=== PATIENT | female | born 1950 | race Caucasian/White ===

== ENCOUNTER → 2016-11-10 | Outpatient (CLI) | payer OTHER ==
[~2016-11-10] MED LIST: GLIPIZIDE5 M1 PO; GLUCOPHAGE1000 MG PO; LOVASTATIN10 MG PO; MEDROL DOSEPAK4 MG PO; METFORMIN500 MG PO; TRAZADONE HYDR100 MG PO; ZIAC 10 MG-6.251 TAB PO
--- NOTE | ~2016-11-10 | ST ---
[place], [place] EXERCISE STRESS TEST REPORT NAME: [facility]AS [facility]: [id number] UNIT #: [id number] ROOM: DOCTOR: TUNG PIERSON MD BIRTHDATE: [birth year] DOS: 11/10/2016 Lexiscan per protocol. Baseline cardiogram sinus rhythm with nonspecific ST-T changes, 0.4 mg of Lexiscan, duration of 10 seconds. With Lexiscan, no new EKG changes. No chest discomfort. No dysrhythmia. Blood pressure and heart rate response was normal. FINAL IMPRESSION: Normal Lexiscan portion of the stress test. No EKG changes with Lexiscan. No chest pain with Lexiscan. No dysrhythmia with Lexiscan. Blood pressure and heart rate response was normal. Nuclear images will be reported separately. TUNG PIERSON MD CM:STRESS:EXERCISE STRESS TEST REPORT [id number] 0002 TUNG PIERSON MD
== END | disposition home or self-care (01) ==
LOC: CARD 02:33
DX: R94.31 Abnormal electrocardiogram [ECG] [EKG] (principal)

== ENCOUNTER 2017-02-03 17:04 | Emergency (ER) | payer OTHER ==
[~2017-02-03] VITALS: Wt 74.8 kg
== END 2017-02-03 18:41 | disposition home or self-care (01) ==
LOC: ED 17:04
DX: S01.01XA Laceration without foreign body of scalp, initial encounter (principal); S50.312A Abrasion of left elbow, initial encounter; R10.30 Lower abdominal pain, unspecified; Z79.899 Other long term (current) drug therapy; W10.9XXA Fall (on) (from) unspecified stairs and steps, initial encounter; Y93.89 Activity, other specified; Y92.89 Other specified places as the place of occurrence of the external cause; Y99.8 Other external cause status

== ENCOUNTER 2018-05-05 10:44 | Emergency (ER) | payer OTHER ==
[~2018-05-05] VITALS: Ht 170.1 cm; Wt 74.8 kg
--- NOTE | ~2018-05-05 | EKG ---
[place], [place] ELECTROCARDIOGRAM REPORT NAME: ANGLE COVARRUBIAS UNIT #: [id number] ROOM: DOCTOR: EPIPHANY DRAFT REPORT BIRTHDATE: [birth year] [facility] Test Date: 2018-05-05 Test Time: 11:31:09 Pat Name: ANGLE COVARRUBIAS Department: Room: Gender: F Engine Repairer Production: Cassandra Fields : 1950 Requested By: GABRIELA RASMUSSEN PA-C Order Number: [id number] Reading MD: Dennis Samuels MD Measurements Intervals Anderson Rate: 62 P: 207 VA: 127 QRS: 22 QRSD: 92 T: 25 QT: 441 QTc: 448 Interpretive Statements Sinus rhythm Possible left atrial enlargement Electronically Signed On 05-06-2018 13:23:05 PDT by Dennis Samuels MD CM:EKGRPT:ELECTROCARDIOGRAM REPORT [id number] GABRIELA RASMUSSEN PA-C EPIPHANY DRAFT REPORT GABRIELA RASMUSSEN PA-C
[2018-05-05] MEDS ORDERED: MOBIC7.5 MG PO (10:54)
[2018-05-05 11:39] LABS: BASO # 0.1 10*3/uL (0.0-0.1); BASO % 0.7 % (0.0-1.0); EOS # 0.2 10*3/uL (0.0-0.4); EOS % 2.6 % (1.0-4.0); HEMATOCRIT 42.4 % (37.0-47.0); HEMOGLOBIN 14.8 g/dl (12.0-16.0); LYMPH # 2.1 10*3/uL (1.3-4.4); LYMPH % 28.3 % (27.0-41.0); MEAN CELL VOLUME 86.5 fl (81.0-99.0); MEAN CORPUSCULAR HGB 30.2 pg (27.0-31.0); MEAN CORPUSCULAR HGB CONC 34.9 g/dl (33.0-37.0); MEAN PLATELET VOLUME 11.6 fl (9.6-12.3); MONO # 0.5 10*3/uL (0.1-1.0); MONO % 7.1 % (3.0-9.0); NEUT # 4.5 10*3/uL (2.3-7.9); NEUT % 61.2 % (47.0-73.0); PLATELET COUNT AUTOMATED 191 10*3/uL (130-400); RED CELL DISTRI WIDTH 12.4 % (0-14.5); WHITE BLOOD COUNT 7.4 10*3/uL (4.8-10.8)
[2018-05-05 11:55] LABS: ALKALINE PHOSPHATASE 71 U/L (45-117); BUN 12 mg/dl (7-24); CHLORIDE 105 mmol/L (98-107); CREATININE 0.73 mg/dL (0.55-1.02); SGPT/ALT 31 U/L (12-78); SODIUM 137 mmol/L (136-145); TOTAL PROTEIN 7.6 gm/dL (6.4-8.2)
[2018-05-05 11:56] LABS: SGOT/AST 25 IU/L (3-35)
[2018-05-05 12:03] LABS: TROPONIN I < 0.015 ng/ml (<0.045)
== END 2018-05-05 13:35 | disposition home or self-care (01) ==
LOC: ED 10:44
PROVIDERS: Physician Assistant
DX: I10 Essential (primary) hypertension (principal); M25.511 Pain in right shoulder; M54.9 Dorsalgia, unspecified; R51 Headache; R79.1 Abnormal coagulation profile; Z79.899 Other long term (current) drug therapy

== ENCOUNTER → 2018-10-05 | Outpatient (CLI) | payer OTHER ==
[~2018-10-05] MED LIST changes: +MOBIC7.5 MG PO
[2018-10-05 08:57] LABS: BASO # 0.1 10*3/uL (0.0-0.1); BASO % 0.8 % (0.0-1.0); EOS # 0.2 10*3/uL (0.0-0.4); EOS % 2.1 % (1.0-4.0); HEMATOCRIT 44.6 % (37.0-47.0); HEMOGLOBIN 14.9 g/dl (12.0-16.0); LYMPH # 2.5 10*3/uL (1.3-4.4); MEAN CELL VOLUME 88.3 fl (81.0-99.0); MEAN CORPUSCULAR HGB 29.5 pg (27.0-31.0); MEAN CORPUSCULAR HGB CONC 33.4 g/dl (33.0-37.0); MEAN PLATELET VOLUME 11.2 fl (9.6-12.3); MONO # 0.7 10*3/uL (0.1-1.0); MONO % 7.8 % (3.0-9.0); NEUT % 59.1 % (47.0-73.0); PLATELET COUNT AUTOMATED 227 10*3/uL (130-400); RED BLOOD COUNT 5.05 10*6/uL (4.10-5.10); RED CELL DISTRI WIDTH 12.4 % (0-14.5); WHITE BLOOD COUNT 8.5 10*3/uL (4.8-10.8)
== END | disposition home or self-care (01) ==
LOC: PHLEB 01:48
PROVIDERS: Internal Medicine
DX: D75.1 Secondary polycythemia (principal)

== ENCOUNTER → 2019-02-06 | Outpatient (CLI) | payer OTHER | END | disposition home or self-care (01) | LOC: US 10:19 | DX: K76.0 Fatty (change of) liver, not elsewhere classified (principal); Z90.49 Acquired absence of other specified parts of digestive tract ==

== ENCOUNTER → 2022-12-14 | Outpatient (CLI) | payer OTHER | END | disposition home or self-care (01) | LOC: MAMMO 08:59 | PROVIDERS: ATTEND Physician Assistant | DX: Z12.31 Encounter for screening mammogram for malignant neoplasm of breast (principal); R92.1 Mammographic calcification found on diagnostic imaging of breast; Z78.0 Asymptomatic menopausal state ==

== ENCOUNTER → 2024-03-02 | Outpatient (CLI) | payer MEDICARE | END | disposition home or self-care (01) | LOC: RESCLI 09:55 | PROVIDERS: ATTEND Internal Medicine | DX: E11.65 Type 2 diabetes mellitus with hyperglycemia (principal); I10 Essential (primary) hypertension; E55.9 Vitamin D deficiency, unspecified; Z82.49 Family history of ischemic heart disease and other diseases of the circulatory system; K21.9 Gastro-esophageal reflux disease without esophagitis; Z98.890 Other specified postprocedural states; Z79.899 Other long term (current) drug therapy ==

== ENCOUNTER → 2024-04-27 | Outpatient (CLI) | payer MEDICARE ==
[2024-04-27 09:54] LABS: ALKALINE PHOSPHATASE 96 U/L (46-116); BUN 11 mg/dl (9-23); CHLORIDE 104 mmol/L (98-107); CHOLESTEROL 192 mg/dL (<200); LDL CHOLESTEROL 125 mg/dL (9-159); POTASSIUM 4.1 mmol/L (3.4-5.1); SGPT/ALT 17 U/L (5-49); TOTAL PROTEIN 7.4 gm/dL (6.0-8.0); TRIGLYCERIDES 180 mg/dl (<150)
== END | disposition home or self-care (01) ==
LOC: LAB 09:12
PROVIDERS: ATTEND Internal Medicine Endocrinology, Diabetes & Metabolism
DX: E11.65 Type 2 diabetes mellitus with hyperglycemia (principal); E78.5 Hyperlipidemia, unspecified